=== PATIENT | male | born 1980 | race African-American/Black ===

== ENCOUNTER 2021-03-02 02:44 | Emergency (ER) | payer OTHER ==
[~2021-03-02] VITALS: Ht 172.7 cm; Wt 93.0 kg
[2021-03-02 04:15] VITALS: BP 128/66
== END 2021-03-02 04:17 | disposition home or self-care (01) ==
LOC: M.ERS 02:44
DX: S62.334A Displaced fracture of neck of fourth metacarpal bone, right hand, initial encounter for closed fracture (principal); J45.909 Unspecified asthma, uncomplicated; W51.XXXA Accidental striking against or bumped into by another person, initial encounter; Y93.89 Activity, other specified; Y92.89 Other specified places as the place of occurrence of the external cause; Y99.8 Other external cause status

== ENCOUNTER 2021-06-19 23:39 | Emergency (ER) | payer OTHER ==
[~2021-06-19] VITALS: Ht 172.7 cm; Wt 90.7 kg
[2021-06-20] MEDS ORDERED: AUGMENTIN 500-1 EACH PO (00:42)
[2021-06-20] MEDS ORDERED: BANOPHEN12.5 MG/5 PO (00:42)
[2021-06-20] MEDS ORDERED: ACETAMINOPHEN-1 EAC2 PO (00:42)
[2021-06-20 01:52] VITALS: BP 137/86
== END 2021-06-20 01:52 | disposition home or self-care (01) ==
LOC: M.ERS 23:39
DX: J36 Peritonsillar abscess (principal); J45.909 Unspecified asthma, uncomplicated